=== PATIENT | female | born 1995 | race Two or more races ===

== ENCOUNTER 2018-07-03 23:42 | Emergency (ER) | payer SELFPAY ==
[2018-07-03 23:52] VITALS: BMI 20.7
--- NOTE | 2018-07-04 | PDOC ---
History of Present Illness - General Chief Complaint: Pain Stated Complaint: RIGHT SIDE AND BACK PAIN FOR 2 DAYS Time Seen by Provider: 07/03/18 23:47 - History of Present Illness Initial Comments: 07/04/18 00:42 This 22-year-old woman with no significant past medical history presents with a 2 day history of right flank/right CVA/right upper quadrant abdominal pain. Patient is constant and worsens with movement and deep breathing. No measured fever although patient states that she has been feeling "sweaty". No nausea/ vomiting; decreased appetite. No diarrhea; last bowel movement was small amount yesterday morning. No dysuria/urinary frequency or urgency/hematuria. No history of UTI or renal stones. She denies vaginal discharge. The patient has not had this pain before. Past History - Past Medical History Allergies/Adverse Reactions: Allergies Allergy/AdvReac Type Severity Reaction Status Date / Time No Known Allergies Allergy Unverified 07/03/18 23:44 Home Medications: Ambulatory Orders Levofloxacin [Levaquin] 750 mg PO DAILY #6 tablet 07/04/18 Oxycodone HCl/Acetaminophen [Percocet 5-325 mg Tablet] 1 tab PO Q6H PRN #12 tablet MDD 4 tabs 07/04/18 COPD: No Other medical history: MARY - Suicide/Smoking/Psychosocial Hx Smoking History: Never smoked Have you smoked in the past 12 months: No Information on smoking cessation initiated: No Hx Alcohol Use: No Drug/Substance Use Hx: No Substance Use Type: None Review of Systems - Review of Systems Able to Perform ROS?: Yes Comments:: 12 point review of systems is negative except for what is noted in the history of present illness *Physical Exam - Vital Signs Last Vital Signs Temp Pulse Resp BP Pulse Ox 99 F 110 H 16 98/59 L 100 07/03/18 23:43 07/03/18 23:43 07/03/18 23:43 07/03/18 23:43 07/03/18 23:43 - Physical Exam Comments: GENERAL: Young adult female, alert and oriented 3, in mild distress secondary to right flank/right upper quadrant abdominal pain. HEAD: Normal with no signs of trauma. EYES: PERRLA, EOMI, sclera anicteric, conjunctiva clear. ENT: Ears normal, nares patent, oropharynx clear without exudates. Dry mucous membranes. NECK: Normal range of motion, supple without lymphadenopathy, JVD, or masses. LUNGS: Breath sounds equal, clear to auscultation bilaterally. Decreased breath sounds at bilateral bases. No wheezes, and no crackles. HEART:Regular rate and rhythm, normal S1 and S2 without murmur, rub or gallop. ABDOMEN:.normal bowel sounds; moderate right flank/right CVA tenderness; No guarding or rebound.No masses No distention. Positive Gerardo sign EXTREMITIES: Normal range of motion, no edema. No clubbing or cyanosis. No erythema, or tenderness. NEUROLOGICAL: Cranial nerves II through XII grossly intact. Normal speech. No focal neurological deficits. SKIN: Warm, Dry, normal turgor, no rashes or lesions noted. ED Treatment Course - LABORATORY CBC & Chemistry Diagram: 07/04/18 00:50 07/04/18 00:50 Medical Decision Making - Medical Decision Making Laboratory evaluation notable for white blood cell count of 16,300 with a predominance of neutrophils. Urinalysis positive for UTI with 2+ LAE/positive nitrite/rbcs/wbcs/rare epi/ moderate bacteria. Urine sent for culture and sensitivity Chemistry profile shows normal creatinine and electrolytes except for mild decrease in potassium (3.3) PGU is negative Patient received 30 mg Toradol IV for analgesia and liter normal saline IV hydration Workup consistent with upper tract UTI; renal stone protocol CT performed and preliminary interpretation by Imaging industrial education instructor: No evidence of perinephric abscess or other evidence of complicated pyelonephritis. Patient will be treated with Levaquin 750 mg IV. 07/04/18 04:03 Patient had persistent pain after Toradol 30 mg IV. Percocet 5/325 one tablet given for analgesia. 07/04/18 04:20 Patient reports adequate pain relief after Percocet 5/325. Patient will be discharged with instructions to take Levaquin 750 mg daily for 6 more days. Percocet 5/325 up to 4 times a day will be used as needed for severe pain; she can use Tylenol/Motrin/Aleve as needed for moderate pain. She should drink plenty of fluids and return to the emergency room if she has high fever/ increasing severe pain or vomiting. *DC/Admit/Observation/Transfer Diagnosis at time of Disposition: Pyelonephritis - Discharge Dispostion Disposition: HOME Condition at time of disposition: Stable - Prescriptions Prescriptions: Levofloxacin [Levaquin] 750 mg PO DAILY #6 tablet Oxycodone HCl/Acetaminophen [Percocet 5-325 mg Tablet] 1 tab PO Q6H PRN #12 tablet MDD 4 tabs PRN Reason: Severe Pain - Referrals - Patient Instructions Printed Discharge Instructions: Kidney Infection Additional Instructions: Rest; drink plenty of fluids No work for the next 3 days Tylenol/Motrin/Aleve as needed for [id number] pain Percocet 5/325 as needed for severe pain; up to 4 tabs per day Levaquin 750 mg once a day for the next 6 days Return to the ER if you have increasing pain, persistent high fever or vomiting Follow-up with your doctor within the next 5 days - Post Discharge Activity Forms/Work/School Notes: Back to Work
[2018-07-04] MEDS ORDERED: KETOROLAC TROMETHAMINE 30 MG/1 ML VIAL IVPUSH ONE (00:32)
[2018-07-04] MEDS ORDERED: SODIUM CHLORIDE 1,000 ML IV STA (00:32)
[2018-07-04] MEDS ORDERED: KETOROLAC TROMETHAMINE 30 MG/1 ML VIAL ONE (00:55)
[2018-07-04 01:16] LABS: BASO % 0.1 % (0-2.0); EOS % 0.1 % (0-4.5); HEMATOCRIT 36.8 % (32.4-45.2); HEMOGLOBIN 11.8 GM/dL (10.7-15.3); LYMPH % 6.4 % (8-40); MCH 23.1 pg (25.7-33.7); MEAN PLT VOLUME 7.5 fl (7.5-11.1); MONO % 8.3 % (3.8-10.2); NEUT % 85.1 % (42.8-82.8); PLATELET COUNT 266 K/MM3 (134-434); RBC 5.11 M/mm3 (3.60-5.2); RDW 16.6 % (11.6-15.6); WHITE BLOOD COUNT 16.3 K/mm3 (4.0-10.0)
[2018-07-04 01:24] LABS: URINE APPEARANCE CLOUDY; URINE BILIRUBIN NEGATIVE (<2.0 mg/dL); URINE COLOR AMBER; URINE GLUCOSE (UA) NEGATIVE (NEGATIVE); URINE KETONE NEGATIVE (NEGATIVE); URINE LEUK ESTERASE 3+ (NEGATIVE); URINE NITRITE POSITIVE (NEGATIVE); URINE PROTEIN 2+ (NEGATIVE)
[2018-07-04 01:25] LABS: HCG,QUALITATIVE URINE Negative
[2018-07-04 01:36] LABS: EPI CELLS RARE /HPF (FEW); URINE BACTERIA MODERATE /hpf (NONE SEEN); URINE MUCUS MODERATE; YEAST RARE
[2018-07-04 01:39] LABS: ALBUMIN 3.6 g/dl (3.4-5.0); ALK PHOS 79 U/L (45-117); ANION GAP 11 MMOL/L (8-16); BILIRUBIN,TOTAL 0.7 mg/dL (0.2-1); BLOOD UREA NITROGEN 14 mg/dL (7-18); CALCIUM 8.4 mg/dL (8.5-10.1); CHLORIDE 102 mmol/L (98-107); CO2 23 mmol/L (21-32); GLUCOSE,RANDOM 91 mg/dL (74-106); POTASSIUM 3.3 mmol/L (3.5-5.1); SGOT/AST 20 U/L (15-37); SGPT/ALT 13 U/L (13-61); SODIUM 136 mmol/L (136-145); TOT PROT 7.2 g/dl (6.4-8.2)
[2018-07-04 02:01] VITALS: BP 97/57; PULSE 93; TEMP 98.6
== END 2018-07-04 04:45 | disposition home or self-care (01) ==
LOC: FER 23:42
PROC: 3E0333Z Introduction of Anti-inflammatory into Peripheral Vein, Percutaneous Approach (ICD-10-PCS; principal; 2018-07-03)
PROC: 3E03329 Introduction of Other Anti-infective into Peripheral Vein, Percutaneous Approach (ICD-10-PCS; 2018-07-03)
PROC: 3E0337Z Introduction of Electrolytic and Water Balance Substance into Peripheral Vein, Percutaneous Approach (ICD-10-PCS; 2018-07-03)
DX: N12 Tubulo-interstitial nephritis, not specified as acute or chronic (principal)
CPT/HCPCS: 36415; 74176; 80053; 81003; 81015; 84703; 85025; 87086; 87186; 99284-25; J7030